=== PATIENT | female | born 1995 | race Caucasian/White ===

== ENCOUNTER → 2018-03-13 11:17 | Outpatient (CLI) | payer OTHER, SELFPAY | PROVIDERS: PCP Specialist; Visit Provider Specialist | DX: Z34.81 Encounter for supervision of other normal pregnancy, first trimester (principal) | CPT/HCPCS: 36415; 86850; 86900; 86901 ==

== ENCOUNTER → 2018-04-29 11:42 | Outpatient (CLI) | payer OTHER, SELFPAY ==
--- NOTE | 2018-04-29 11:44 | DI.US.S_ITS ---
PROCEDURE: US OB >= 14 WEEKS FETUS INDICATIONS: 20 week anatomic surgey OUTSIDE/PRIOR DATING DATA: Last menstrual period (LMP): 11/24/17. LMP-based estimated date of delivery (JEAN CARLOS): 09/01/18. First dating scan (date and location): 02/16/18. Estimated date of delivery (JEAN CARLOS) from first dating scan: 09/23/18. TECHNIQUE: Real-time scanning was performed of the fetus, with image documentation and biometric measurements. Endovaginal scanning: No COMPARISON: [facility], , OB >= 14 WEEKS FETUS, 04/17/2018, 12:13. FINDINGS: General: A single living intrauterine gestation is present. Presentation: Vertex. Placenta: Placental position is posterior, without previa. Amniotic fluid index: 12.5 cm, normal range is 5-24 cm. heart rate: 149 beats per minute. Maternal cervical canal: 3.3 cm long. Normal lower limit is 2.5 cm. biometrics: Biparietal diameter: 19 weeks 3 days Head circumference: 19 weeks 0 days Abdominal circumference: 19 weeks 3 days Femur length: 18 weeks 2 days Estimated gestational age from initial scan: 19 weeks 0 days Composite gestational age from present scan: 18 weeks 6 days Estimated weight and percentile: 264 g; 40 percentile Measurement variability for biometric dating: +/- 7 days from 14 weeks to 15 weeks 6 days gestation, +/- 10 days from 16 weeks to 21 weeks 6 days gestation, +/- 2 weeks from 22 weeks to 27 weeks 6 days gestation, +/- 3 weeks for 28 weeks gestation or later. weight reference: 4500 g or EFW >90/95% is considered macrosomia or large for gestational age. EFW <10% is small for gestational age. EFW 5% or less is considered intra-uterine growth restriction. Anatomic survey: Neuro: Ventricles are non-dilated at less than 10 mm. Cisterna magna is normal at 3-11 mm. Cerebellum is normal in size and morphology. Nuchal skin fold: Normal at less than 6 mm between 14-21 weeks gestational age. Face: Nose and lips, facial profile are normal. Spine: No evidence for spina bifida. Heart: 4-chambered heart is present, with normal ventricular outflow tracts. Diaphragm: Diaphragm is intact. Stomach: Left-sided stomach is present. Kidneys: No hydronephrosis. Normal is less than 5 mm in 2nd trimester, less than 7 mm in 3rd trimester. Cord: 3-vessel cord has orthotopic insertion. Marginal placental cord insertion roughly 1.9 cm from the placental margin. Bladder: Normal in size. Extremities: All 4 extremities identified. IMPRESSION: 1. Single living IUP redemonstrated and interval growth is normal. 2. Normal anatomic survey. 3. Marginal placental cord insertion. Dictated by: Benigno Baxter [facility] Interpreted: Jennifer Meier MD on 04/29/2018 at 13:14 Approved by: Jennifer Meier MD, PhD on 04/29/2018 at 14:30
== END ==
PROVIDERS: Family Provider Specialist; PCP Specialist; Visit Provider Specialist
DX: Z34.82 Encounter for supervision of other normal pregnancy, second trimester (principal); Z3A.18 18 weeks gestation of pregnancy
CPT/HCPCS: 76811

== ENCOUNTER → 2018-06-12 10:14 | Outpatient (CLI) | payer OTHER, SELFPAY ==
[2018-06-12 12:10] LABS: Hematocrit 36.7 % (36-46); Hemoglobin 12.3 g/dL (12.0-16.0)
[2018-06-12 13:23] LABS: GTT (PREG) 1 Hour PP 50gm Dose 90 mg/dL (76-139)
== END ==
LOC: LAB 10:15
PROVIDERS: PCP Specialist; Visit Provider Specialist
DX: Z34.82 Encounter for supervision of other normal pregnancy, second trimester (principal); Z3A.26 26 weeks gestation of pregnancy
CPT/HCPCS: 36415; 82950; 85014; 85018

== ENCOUNTER 2018-06-22 11:33 | Outpatient (CLI) | payer OTHER, SELFPAY ==
[2018-06-22 12:17] LABS: Appearance Urine UA CLEAR; Bilirubin Urine UA NEGATIVE (NEGATIVE); Color Urine UA YELLOW; Glucose Urine UA NEGATIVE (Negative); Ketones Urine UA NEGATIVE (NEGATIVE); Leukocyte Esterase Urine UA NEGATIVE (NEGATIVE); Nitrite Urine UA NEGATIVE (Negative); Occult Blood Urine UA NEGATIVE (Negative); Protein Urine UA NEGATIVE (Negative); Specific Gravity Urine UA 1.015 (1.000-1.035); Urobilinogen Urine UA 0.2 E.U./dL (0.2); pH Urine UA 7.5 (4.5-8.0)
--- NOTE | 2018-06-22 12:48 | P.TNLD_ITS ---
Visit Information Visit Information Date of evaluation: 06/22/18 Primary OB Provider: Nathalie Grier Reason for Evaluation: Yes pre-term labor Exam Narrative Exam Narrative: cervix long and closed. Objective Labs Labs: Laboratory Results - last 24 hr 06/22/18 11:44 Urine Color Yellow Urine Appearance Clear Urine pH 7.5 Ur Specific [place] 1.015 Urine Protein Negative Urine Glucose (UA) Negative Urine Ketones Negative Urine Occult Blood Negative Urine Nitrate Negative Urine Bilirubin Negative Urine Urobilinogen 0.2 Ur Leukocyte Esterase Negative Evaluation Evaluation Baseline heart rate: 150 Variability: Average (6-10) monitor accelerations: Present monitor decelerations: Absent Contraction Frequency (minutes): 0 Laboratory results: Laboratory Tests 06/22/18 11:44 Urine Color Yellow Urine Appearance Clear Urine pH 7.5 Ur Specific [place] 1.015 Urine Protein Negative Urine Glucose (UA) Negative Urine Ketones Negative Urine Occult Blood Negative Urine Nitrate Negative Urine Bilirubin Negative Urine Urobilinogen 0.2 Ur Leukocyte Esterase Negative Diagnosis, Plan/Disposition Final Diagnosis (1) Pelvic pain affecting in second trimester, antepartum: Current Visit: Yes Status: Acute Plan/Disposition Plan: No evidence of premature labor or UTI. Likely pelvic floor muscle discom fort from work out side yesterday. Rest call if symptoms increase
== END 2018-06-22 13:00 | disposition home or self-care (01) ==
LOC: LABOR 12:26 → OB 06-23 14:11
PROVIDERS: PCP Specialist; Visit Provider Specialist
DX: O26.892 Other specified pregnancy related conditions, second trimester (principal); R10.2 Pelvic and perineal pain; Z3A.26 26 weeks gestation of pregnancy
CPT/HCPCS: 59025; 81003; G0378; G0379

== ENCOUNTER 2018-07-14 12:31 | Outpatient (CLI) | payer OTHER, SELFPAY ==
--- NOTE | 2018-07-14 18:39 | PM.OBTRLD ---
Visit Information Visit Information Date of evaluation: 07/14/18 Primary OB Provider: Nathalie Grier On-call OB Provider: Jojo Cavanaugh Reason for Evaluation: Yes pre-term labor Review of Systems Review of Systems Patient is a 23-year-old 2 para 1 at 29-,6/7 weeks gestation who presented with complaint of feeling pressure for the last few days. No bleeding or leakage of fluid. Evaluation Evaluation Variability: Average (6-10) monitor accelerations: Present monitor decelerations: Variable Contraction Frequency (minutes): 0 Category of Tracing: I Cervical dilation (cm): 0 Diagnosis, Plan/Disposition Final Diagnosis (1) 29 weeks gestation of : Current Visit: No Status: Acute (2) Pelvic pressure in : Current Visit: No Status: Acute Plan/Disposition Plan: Assessment: 23-year-old 2 para 1 at 29-,6/7 weeks gestation with pelvic pressure, no signs of labor Plan: Discharged home Signs and symptoms of labor reviewed Follow-up with Dr. Grier as scheduled OB Disposition: home
== END 2018-07-14 14:30 | disposition home or self-care (01) ==
LOC: LABOR 13:19 → OB 07-16 10:53
PROVIDERS: PCP Specialist; Visit Provider Specialist
DX: O26.899 Other specified pregnancy related conditions, unspecified trimester (principal); R10.2 Pelvic and perineal pain; Z3A.29 29 weeks gestation of pregnancy
CPT/HCPCS: 59025; 59050; G0378; G0379

== ENCOUNTER → 2018-08-26 12:11 | Outpatient (CLI) | payer OTHER, SELFPAY ==
[2018-08-27 15:08] LABS: Strep Grp B PCR NEG for Grp B Strep
== END ==
LOC: LAB 12:12
PROVIDERS: PCP Specialist; Visit Provider Specialist
DX: Z34.90 Encounter for supervision of normal pregnancy, unspecified, unspecified trimester (principal)
CPT/HCPCS: 87653

== ENCOUNTER 2018-09-18 11:28 | Inpatient (IN) | payer OTHER, SELFPAY ==
[2018-09-18] MEDS: LACTATED RINGERS 1,000 ML 1000 ML IV (11:45)
[2018-09-18 12:15] LABS: Add Manual Diff / Slide Review NO; Basophils Absolute Auto 0 /uL (0-100); Basophils Percent Auto 0.3 % (0-2); Eosinophils Absolute Auto 300 /uL (0-450); Eosinophils Percent Auto 3.5 % (2-4); Hematocrit 36.6 % (36-46); Hemoglobin 12.5 g/dL (12.0-16.0); Lymphocytes Absolute Auto 1100 /uL (1100-4500); Lymphocytes Percent Auto 12.5 % (25-40); Mean Corpuscular Hemoglobin 26.9 PG (26-34); Mean Corpuscular Volume 79.1 fL (80-100); Monocytes Absolute Auto 600 /uL (0-900); Monocytes Percent Auto 6.4 % (3-14); Neutrophils Absolute Auto 6700 /uL (1500-7000); Neutrophils Percent Auto 77.3 % (50-75); Platelet Count 246 X10^3/uL (150-400); Red Blood Cell Count 4.63 X10^6/uL (4.0-5.2); Red Cell Distribution Width 13.9 % (11.6-14.8); White Blood Cell Count 8.7 X10^3/uL (4.5-11.0)
--- NOTE | 2018-09-18 12:46 | PM.OBHP.1 ---
OB HPI Date/Time Date of admission: 09/18/18 Date Patient Seen: 09/18/18 Time Patient Seen: 12:47 History of Present Condition Chief complaint: [id number] REPEAT : 2 Para: 1 Estimated Date of Delivery: 09/23/18 Estimated Gestational Age (weeks): 39 Narrative: Jody Angelo is a 23 year old female here for repeat section at 39 weeks Indications Operative indications ( section): previous uterine surgery History of Present care: good care, initiated at week # (8), number of visits (12) and pounds weight gain (17) Dating criteria: LMP confirmed by 1st trimester US Ultrasounds: normal mid trimester US Obstetrical complications: none Medical complications: none Preadmission Labs Blood type: B (+) positive -: Antibody screen: negative, GBS status: negative, HBsAG: negative, HIV: negative, HSV 1: positive, HSV 2: negative and RPR/VDLR: negative -: Chlamydia screen: not detected and Gonorrhea screen: not detected -: Rubella: immune and Varicella: immune HCAB: negative Fasting blood glucose: 90 Prior (ies) History: March 2017 for breech 8 lb 2 oz 40 week gestation Evaluation Evaluation Baseline heart rate: 125 Variability: Moderate (11-25) monitor accelerations: Present monitor decelerations: Absent Contraction Frequency (minutes): 0 Category of Tracing: I Laboratory results: Laboratory Tests 09/18/18 12:00 WBC 8.7 RBC 4.63 Hgb 12.5 Hct 36.6 MCV 79.1 L MCH 26.9 MCHC 34.0 RDW 13.9 Plt Count 246 Neut % (Auto) 77.3 H Lymph % (Auto) 12.5 L [place] % (Auto) 6.4 Eos % (Auto) 3.5 Baso % (Auto) 0.3 Neut # (Auto) 6700 Lymph # (Auto) 1100 [place] # (Auto) 600 Eos # (Auto) 300 Baso # (Auto) 0 PFSH Medical History (Updated 09/18/18 @ 12:53 by Nathalie Grier MD) Asthma (Chronic) Bipolar disorder in remission (Chronic) Migraine (Chronic) Meds Home Medications Medication Instructions Recorded Confirmed Type Breast Pump - Double Electric ea SEE INSTRUCTIONS #1 01/20/17 Rx oxycodone-acetaminophen 1 - 2 tab PO Q4HP PRN #40 tab 04/02/17 Rx [triple nipple oint] #0 05/02/17 History vitamin #141-hyos-[id number] 1 tab PO DAILY #30 tab 01/19/18 Rx acid 40 mg iron-1 mg chewable tablet nitrofurantoin 100 mg PO BID #10 cap 03/03/18 Rx monohydrate/macrocrystals 100 mg capsule albuterol sulfate HFA 90 2 puff INHALATION PRN PRN #1 07/22/18 Rx mcg/actuation aerosol inhaler inhalation budesonide-formoterol HFA 80 1 inh INHALATION BID #1 inh 07/22/18 Rx mcg-4.5 mcg/actuation aerosol inhaler Allergies Allergy/AdvReac Type Severity Reaction Status Date / Time NSAIDS (Non-Steroidal Allergy Unknown Unverified 07/02/17 12:42 Anti-Inflamma [NSAIDS (NON-STEROIDAL ANTI-INFLAMMA] Review of Systems Review of Systems Patient has no contractions or rupture membranes. No signs or symptoms of preeclampsia. Good movement. All systems reviewed & are unremarkable except as noted in HPI and below Exam Vital Signs (past 8 hours): Blood pressure 133/79, pulse of 101, temperature 97.7? Narrative Exam Narrative: HEENT exam within normal limits. Lungs are clear to auscultation percussion. Heart is regular rate and rhythm no S3-S4 murmurs. Abdomen is soft, nontender.. Extremities with trace edema and nontender. Objective Labs Result Diagrams: 09/18/18 12:00 Labs: Laboratory Results - last 24 hr 09/18/18 12:00 WBC 8.7 RBC 4.63 Hgb 12.5 Hct 36.6 MCV 79.1 L MCH 26.9 MCHC 34.0 RDW 13.9 Plt Count 246 Neut % (Auto) 77.3 H Lymph % (Auto) 12.5 L [place] % (Auto) 6.4 Eos % (Auto) 3.5 Baso % (Auto) 0.3 Neut # (Auto) 6700 Lymph # (Auto) 1100 [place] # (Auto) 600 Eos # (Auto) 300 Baso # (Auto) 0 Assessment and Plan Assessment and Plan Assessment and Plan narrative: Thirty-nine week gestation with prior section for breech for repeat section
--- NOTE | 2018-09-18 12:52 | P.HPOB_ITS ---
OB HPI Date/Time Date of admission: 09/18/18 Date Patient Seen: 09/18/18 Time Patient Seen: 12:47 History of Present Condition Chief complaint: [id number] REPEAT : 2 Para: 1 Estimated Date of Delivery: 09/23/18 Estimated Gestational Age (weeks): 39 Narrative: Jody Angelo is a 23 year old female here for repeat section at 39 weeks Indications Operative indications ( section): previous uterine surgery History of Present care: good care, initiated at week # (8), number of visits (12) and pounds weight gain (17) Dating criteria: LMP confirmed by 1st trimester US Ultrasounds: normal mid trimester US Obstetrical complications: none Medical complications: none Preadmission Labs Blood type: B (+) positive -: Antibody screen: negative, GBS status: negative, HBsAG: negative, HIV: negative, HSV 1: positive, HSV 2: negative and RPR/VDLR: negative -: Chlamydia screen: not detected and Gonorrhea screen: not detected -: Rubella: immune and Varicella: immune HCAB: negative Fasting blood glucose: 90 Prior (ies) History: March 2017 for breech 8 lb 2 oz 40 week gestation Evaluation Evaluation Baseline heart rate: 125 Variability: Moderate (11-25) monitor accelerations: Present monitor decelerations: Absent Contraction Frequency (minutes): 0 Category of Tracing: I Laboratory results: Laboratory Tests 09/18/18 12:00 WBC 8.7 RBC 4.63 Hgb 12.5 Hct 36.6 MCV 79.1 L MCH 26.9 MCHC 34.0 RDW 13.9 Plt Count 246 Neut % (Auto) 77.3 H Lymph % (Auto) 12.5 L [place] % (Auto) 6.4 Eos % (Auto) 3.5 Baso % (Auto) 0.3 Neut # (Auto) 6700 Lymph # (Auto) 1100 [place] # (Auto) 600 Eos # (Auto) 300 Baso # (Auto) 0 PFSH Medical History (Updated 09/18/18 @ 12:53 by Nathalie Grier MD) Asthma (Chronic) Bipolar disorder in remission (Chronic) Migraine (Chronic) Meds Home Medications Medication Instructions Recorded Confirmed Type Breast Pump - Double Electric ea SEE INSTRUCTIONS #1 01/20/17 Rx oxycodone-acetaminophen 1 - 2 tab PO Q4HP PRN #40 tab 04/02/17 Rx [triple nipple oint] #0 05/02/17 History vitamin #002-knme-[id number] 1 tab PO DAILY #30 tab 01/19/18 Rx acid 40 mg iron-1 mg chewable tablet nitrofurantoin 100 mg PO BID #10 cap 03/03/18 Rx monohydrate/macrocrystals 100 mg capsule albuterol sulfate HFA 90 2 puff INHALATION PRN PRN #1 07/22/18 Rx mcg/actuation aerosol inhaler inhalation budesonide-formoterol HFA 80 1 inh INHALATION BID #1 inh 07/22/18 Rx mcg-4.5 mcg/actuation aerosol inhaler Allergies Allergy/AdvReac Type Severity Reaction Status Date / Time NSAIDS (Non-Steroidal Allergy Unknown Unverified 07/02/17 12:42 Anti-Inflamma [NSAIDS (NON-STEROIDAL ANTI-INFLAMMA] Review of Systems Review of Systems Patient has no contractions or rupture membranes. No signs or symptoms of preeclampsia. Good movement. All systems reviewed & are unremarkable except as noted in HPI and below Exam Vital Signs (past 8 hours): Blood pressure 133/79, pulse of 101, temperature 97.7? Narrative Exam Narrative: HEENT exam within normal limits. Lungs are clear to auscultation percussion. Heart is regular rate and rhythm no S3-S4 murmurs. Abdomen is soft, nontender.. Extremities with trace edema and nontender. Objective Labs Result Diagrams: 09/18/18 12:00 Labs: Laboratory Results - last 24 hr 09/18/18 12:00 WBC 8.7 RBC 4.63 Hgb 12.5 Hct 36.6 MCV 79.1 L MCH 26.9 MCHC 34.0 RDW 13.9 Plt Count 246 Neut % (Auto) 77.3 H Lymph % (Auto) 12.5 L [place] % (Auto) 6.4 Eos % (Auto) 3.5 Baso % (Auto) 0.3 Neut # (Auto) 6700 Lymph # (Auto) 1100 [place] # (Auto) 600 Eos # (Auto) 300 Baso # (Auto) 0 Assessment and Plan Assessment and Plan Assessment and Plan narrative: Thirty-nine week gestation with prior section for breech for repeat section
--- NOTE | 2018-09-18 12:57 | PM.PREOP ---
Pre-operative Note Interval Note History & Physical reviewed/Exam performed by Physician: Yes Changes to H&P: No
--- NOTE | 2018-09-18 13:05 | SUR.OPER ---
Supine on Padded OR bed, head on pillow, safety belt at thigh, arms secured on padded arm boards at <90 degrees abduction. Bump under right buttock. Legs uncrossed with pillow under knees, gel pad to heels, tape over blanket to lower legs.
[2018-09-18] MEDS: CEFAZOLIN 2 GM/100 ML FROZ.PIGGY IV (13:45)
[2018-09-18 13:46] VITALS: BP 123/63
[2018-09-18] MEDS: ACETAMINOPHEN IV 1,000 MG/100 ML VIAL 400 MG IV (14:05)
--- NOTE | 2018-09-18 14:13 | SUR.OPER ---
viable female infant delivered at 1406.cord blood and placenta to ob with rn.
[2018-09-18] MEDS: LACTATED RINGERS 1,000 ML 100 ML IV ×3 (14:25→23:43)
[2018-09-18 14:41] VITALS: BP 111/58; PULSE 70; RESP 15; TEMP 36.3; O2SAT 96
[2018-09-18 14:46] VITALS: BP 100/60; PULSE 69; RESP 12; O2SAT 96
--- NOTE | 2018-09-18 14:46 | PM.OP.1 ---
Operative Date/Time/Diagnoses Date of procedure: 09/18/18 Time of procedure: 14:47 Pre-op diagnosis: Thirty-nine weeks with prior section Post-op diagnosis: same Procedure & Clinicians Procedure: Repeat low-transverse Same procedure as scheduled: Yes Indications: Thirty-nine weeks with prior section Surgeon: Nathalie Grier Signal Tower Operator: Oriana Clayton Click Yes if Unassisted: No Anesthesia Type: Spinal Operative Notes Findings: Normal tubes, ovaries, and uterus. Viable female weight 7 lb 8 oz with Apgars of 9 and 9 Closure Type: primary Specimen(s): none sent Estimated Blood Loss (mL): 150 Blood products transfused: none Procedure in detail: The patient was brought to the operating room where she underwent a spinal for anesthesia. She was placed in a supine position with a left lateral tilt. A Vann catheter was placed. Pulsatile stockings were placed and functional throughout the case. 2 g of Ancef were given IV prior to the incision. Warming was in place. The patient was prepped and draped in usual sterile fashion. A low transverse incision was made with a scalpel and the incision was carried down to the fascial layer which was incised transversely with scissors. The midline attachments are superiorly and inferiorly. Some bleeding was controlled Bovie. The rectus muscles were in the midline and the peritoneal incision was made with no damage to internal structures. The peritoneum was incised and superiorly and inferiorly. Bladder blade was placed and a bladder flap was developed and the bladder held away from the lower uterine segment. An incision was made in the uterus with the scalpel and the incision was extended with stretching. The head was elevated out of the abdomen and with fundal pressure and with assistance from a vacuum extractor the baby was delivered. The was bulb suctioned for clear fluid and handed off to the warmer. Cord blood was collected. The placenta delivered spontaneously with traction. The uterus was cleaned with clean laps. The uterine incision was closed in 2 layers of 0 chromic suture the first a running locking layer the second an imbricating layer. The bladder peritoneum was repaired with 2-0 Polysorb suture. The gutters were cleaned of any remaining fluids and ovaries and tubes were observed to be normal. Adequate hemostasis was noted. The perineum was closed with 2-0 Polysorb suture. The fascia layer was closed with 0 Polysorb suture with 2 stitches. The incision was irrigated and adequate hemostasis noted. The incision was closed with interrupted 3-0 Polysorb sutures and then a subcuticular stitch of 4-0 Polysorb suture. The uterus was massaged to remove any clots. The patient went to recovery room in good condition. Counts of instruments and sponges were correct. Complications: none Condition: stable Disposition: other ( Center) Plan for aftercare: Routine post section
[2018-09-18 14:51] VITALS: BP 105/68; PULSE 73; RESP 12; O2SAT 97
[2018-09-18] MEDS: METOCLOPRAMIDE 10 MG/2 ML INJ IV (14:53)
[2018-09-18 14:56] VITALS: BP 101/64; PULSE 71; RESP 14; O2SAT 97
[2018-09-18 15:05] VITALS: BP 102/67; PULSE 67; RESP 12; TEMP 36.1; O2SAT 96
--- NOTE | 2018-09-18 15:15 | SUR.PHASEI ---
Pt transferred to L&D room 2 via bed. Pt's last vital signs and assessment stable; see flowsheet documentation for details. Report given to PATRICIA Diaz prior to transfer. Emily at bedside upon arrival to L&D room 2; bedside assessment completed. PATRICIA Diaz to assume care of pt at this time.
[2018-09-18] MEDS: ONDANSETRON 4 MG/2 ML INJ IV ×2 (19:09→23:29)
[2018-09-18] MEDS: ACETAMINOPHEN 325 MG TABLET 650 MG PO (19:55)
[2018-09-18] MEDS: OXYCODONE IR 5 MG TABLET PO (20:03)
[2018-09-18] MEDS: BUTORPHANOL 1 MG/ML VIAL 0.5 MG IV (21:30)
[2018-09-19] MEDS: ACETAMINOPHEN 325 MG TABLET 650 MG PO ×4 (04:09→23:27)
[2018-09-19] MEDS: OXYCODONE IR 5 MG TABLET PO ×5 (04:10→23:27)
[2018-09-19 06:17] LABS: Add Manual Diff / Slide Review NO; Basophils Absolute Auto 0 /uL (0-100); Basophils Percent Auto 0.3 % (0-2); Eosinophils Absolute Auto 200 /uL (0-450); Eosinophils Percent Auto 2.2 % (2-4); Hematocrit 34.3 % (36-46); Hemoglobin 11.7 g/dL (12.0-16.0); Lymphocytes Absolute Auto 1000 /uL (1100-4500); Lymphocytes Percent Auto 9.8 % (25-40); Mean Corpuscular Volume 79.4 fL (80-100); Monocytes Absolute Auto 700 /uL (0-900); Monocytes Percent Auto 7.2 % (3-14); Neutrophils Absolute Auto 8400 /uL (1500-7000); Neutrophils Percent Auto 80.5 % (50-75); Platelet Count 209 X10^3/uL (150-400); Red Blood Cell Count 4.32 X10^6/uL (4.0-5.2); Red Cell Distribution Width 13.9 % (11.6-14.8); White Blood Cell Count 10.4 X10^3/uL (4.5-11.0)
--- NOTE | 2018-09-19 10:14 | PM.OBPN.1 ---
Subjective - OB Patient comments: no complaints and pain well controlled [place] baby status: doing well [place] feeding status: exclusively breast feeding Date Patient Seen: 09/19/18 Time Patient Seen: 10:15 Interval history: Patient had significant nausea and vomiting overnight but is feeling good now and tolerating a regular diet. Pain is under control. She is urinating and ambulatory. No flatus yet. Patient continues to have nasal congestion from allergies. No symptoms of preeclampsia. Exam Vital Signs (past 8 hours): Oxygen Delivery Method Room Air Narrative Exam Narrative: Blood pressure 113/70, pulse of 95, temperature 98.1? Abdomen is soft, appropriately tender. Uterus is firm, at U, nontender. Dressing is clean dry and intact. Extremities without edema and nontender. Objective Labs Result Diagrams: 09/19/18 06:05 Labs: Laboratory Results - last 24 hr 09/18/18 09/18/18 09/19/18 12:00 12:00 06:05 WBC 8.7 10.4 RBC 4.63 4.32 Hgb 12.5 11.7 L Hct 36.6 34.3 L MCV 79.1 L 79.4 L MCH 26.9 27.0 MCHC 34.0 34.0 RDW 13.9 13.9 Plt Count 246 209 Neut % (Auto) 77.3 H 80.5 H Lymph % (Auto) 12.5 L 9.8 L [place] % (Auto) 6.4 7.2 Eos % (Auto) 3.5 2.2 Baso % (Auto) 0.3 0.3 Neut # (Auto) 6700 8400 H Lymph # (Auto) 1100 1000 L [place] # (Auto) 600 700 Eos # (Auto) 300 200 Baso # (Auto) 0 0 Blood Type B Positive Antibody Screen Negative Assessment & Plan (1) Delivery by section using transverse incision of lower segment of uterus: Status: Acute Assessment and plan: Patient is doing well day to 1. Current Visit: No Plan day: 1 plan OB: routine postop care Time Spent With Patient Total time spent is greater than 50% in coordination of care (as documented) at patient's floor/unit and/or counseling patient: less than 15 minutes
[2018-09-19 10:17] VITALS: TEMP 36.7
[2018-09-19] MEDS: DOCUSATE 250 MG CAPSULE PO (11:30)
[2018-09-19] MEDS: LANOLIN OINT 7 GM 1 APPLIC TOP (11:30)
[2018-09-19 14:25] VITALS: TEMP 37
[2018-09-20] MEDS: OXYCODONE IR 5 MG TABLET PO ×2 (05:19→10:28)
[2018-09-20] MEDS: ACETAMINOPHEN 325 MG TABLET 650 MG PO ×2 (05:19→10:27)
--- NOTE | 2018-09-20 09:54 | P.DS_ITS ---
History of Present Illness Date Patient Seen: 09/20/18 Time Patient Seen: 09:47 Chief complaint: [id number] REPEAT Discharge Providers Date of admission: 09/18/18 11:28 Discharge Date: 09/20/18 Primary care physician: Nathalie Grier MD Consults: 09/18/18 15:43 Consult to Ground Defence Officer Routine Comment: Discharge provider: Nathalie Grier MD Summary Discharge Diagnosis: 9 wek gestation with prior section Hospital Course: Patient under went a repeat low transverse section .Patient denies any signs or symptoms of preeclampsia, she is uinating and ambulating well, her pain is under control. Exam Vital Signs (past 8 hours): BP 123/76, P 81, T98.3 Oxygen Delivery Method Room Air Narrative Exam Narrative: Abdomen is soft, NT. Uterus is firm at U-1 appropriately tender. No edema in extremities, non tender. Pt is RH +, rubella immune, and received Tdap in third trimester Objective Labs Result Diagrams: 09/19/18 06:05 Discharge Plan Discharge Plan Patient Disposition: Home Discharge Med Rec/Prescriptions Prescriptions: Continued Breast Pump - Double Electric SEE INSTRUCTIONS Qty: 1 RF: 0 [triple nipple oint] Qty: 0 RF: 0 vit no.109-iron-FA 40 mg iron- 1 mg tablet,chewable 1 tab PO DAILY Qty: 30 RF: 11 Ventolin HFA 90 mcg/actuation HFA aerosol inhaler 2 puff Inhalation PRN PRN (Reason: asthma) Qty: 1 RF: 2 Symbicort 80-4.5 mcg/actuation HFA aerosol inhaler 1 inh Inhalation BID Qty: 1 RF: 2 oxycodone-acetaminophen 5 MG/325 MG tablet 1 - 2 tab PO Q4HP PRN (Reason: pain (scale score 7-10)) Qty: 40 RF: 0 Discontinued nitrofurantoin monohyd/m-cryst [Macrobid] 100 mg capsule 100 mg PO BID Qty: 10 RF: 0 Follow up/Referrals: Nathalie Grier MD [Primary Care Provider] - 1 Week (remove aquzcel dressing 4 weeks post exam) Provider Discharge Instructions Diet: Regular Activity: nothing in vagina for 4 weeks do not lift over 20 pounds Skin/Wound/Dressing Care Dressing: leave dressing in place for 1 week Discharge Data Primary Care Provider: Nathalie Grier Attending Provider: Nathalie Grier Admit Date/Time: 09/18/18 11:28
[2018-09-20 10:16] VITALS: BP 110/66; PULSE 79; RESP 16; TEMP 37.2
[2018-09-20] MEDS: DOCUSATE 250 MG CAPSULE PO (10:28)
[2018-09-20 10:40] VITALS: BP 110/66; PULSE 79; RESP 16; TEMP 37.2
== END 2018-09-20 11:52 | disposition home or self-care (01) | DRG 788 ==
PROVIDERS: Admitting Provider Specialist; PCP Nurse Practitioner Family; Visit Provider Specialist
PROC: 10D00Z1 Extraction of Products of Conception, Low, Open Approach (ICD-10-PCS; CPT 59514; principal; 2018-09-18 13:30)
DX: O34.219 Maternal care for unspecified type scar from previous cesarean delivery (principal); Z3A.39 39 weeks gestation of pregnancy; Z37.0 Single live birth; R11.2 Nausea with vomiting, unspecified
CPT/HCPCS: 36415; 59025; 59050; 59510; 59514; 85025; 86850; 86900; 86901; J0131; J0595; J0690; J2274; J2405; J2590; J2765

== ENCOUNTER → 2020-03-09 08:31 | Outpatient (CLI) | payer OTHER, MEDICAID, SELFPAY ==
[2020-03-09 10:00] LABS: Add Manual Diff / Slide Review NO; Basophils Absolute Auto 0 /uL (0-100); Basophils Percent Auto 0.5 % (0-2); Eosinophils Absolute Auto 400 /uL (0-450); Eosinophils Percent Auto 6.6 % (2-4); Hematocrit 38.3 % (36-46); Lymphocytes Absolute Auto 1000 /uL (1100-4500); Lymphocytes Percent Auto 15.9 % (25-40); Mean Corpuscular HGB Conc 33.8 % (30-36); Mean Corpuscular Hemoglobin 27.9 PG (26-34); Mean Corpuscular Volume 82.5 fL (80-100); Monocytes Absolute Auto 400 /uL (0-900); Monocytes Percent Auto 6.9 % (3-14); Neutrophils Absolute Auto 4500 /uL (1500-7000); Neutrophils Percent Auto 70.1 % (50-75); Platelet Count 271 X10^3/uL (150-400); Red Blood Cell Count 4.65 X10^6/uL (4.0-5.2); Red Cell Distribution Width 13.3 % (11.6-14.8); White Blood Cell Count 6.5 X10^3/uL (4.5-11.0)
[2020-03-09 10:15] LABS: Appearance Urine UA CLEAR; Bilirubin Urine UA NEGATIVE (NEGATIVE); Color Urine UA YELLOW; Glucose Urine UA NEGATIVE (Negative); Ketones Urine UA NEGATIVE (NEGATIVE); Leukocyte Esterase Urine UA NEGATIVE (NEGATIVE); Nitrite Urine UA NEGATIVE (Negative); Occult Blood Urine UA NEGATIVE (Negative); Protein Urine UA NEGATIVE (Negative); Specific Gravity Urine UA 1.015 (1.000-1.035); Urobilinogen Urine UA 0.2 E.U./dL (0.2); pH Urine UA 7.5 (4.5-8.0)
[2020-03-09 15:46] LABS: Hepatitis B Surface Antigen NEGATIVE s/c (NEGATIVE); Rubella Antibody IgG 21.4 IU/mL (>15)
[2020-03-09 16:06] LABS: HIV 1 & 2 Ab/Ag 4th Gen Combo NEGATIVE (NEGATIVE); Hep C Virus Ab w/Reflex Quant NEGATIVE s/c (NEGATIVE)
[2020-03-10 01:07] LABS: Varicella IgG Antibody 318 index (Immune >165)
[2020-03-10 08:08] LABS: RPR Screen Non Reactive (Non Reactive)
== END ==
PROVIDERS: PCP Family Medicine; Referring Provider Family Medicine; Visit Provider Specialist
DX: Z34.81 Encounter for supervision of other normal pregnancy, first trimester (principal)
CPT/HCPCS: 36415; 80055; 81003; 86787; 86803; 86850; 86900; 86901; 87389

== ENCOUNTER → 2020-06-12 09:09 | Outpatient (CLI) | payer OTHER, MEDICAID, SELFPAY ==
--- NOTE | 2020-06-12 09:12 | DI.US.S_ITS ---
PROCEDURE: US OB >= 14 WEEKS FETUS INDICATIONS: ANATOMY OUTSIDE/PRIOR DATING DATA: Last menstrual period (LMP): 01/11/20. LMP-based estimated date of delivery (JEAN CARLOS): 10/17/20 . First dating scan (date and location): 03/09/20, by Dr. Grier . Estimated date of delivery (JEAN CARLOS) from first dating scan: 10/29/20, by Dr. Grier . TECHNIQUE: Real-time scanning was performed of the fetus, with image documentation and biometric measurements. Endovaginal scanning: Not needed COMPARISON: [facility], , OB >= 14 WEEKS FETUS, 05/24/2020, 9:26. [employer] [facility], , OB >= 14 WEEKS FETUS, 04/27/2020, 14:45. FINDINGS: General: A single living intrauterine gestation is present. Presentation: Transverse head right Placenta: Placental position is posterior , without previa. Amniotic fluid index: 14.7 cm, normal range is 5-24 cm. heart rate: 132 beats per minute. Maternal cervical canal: 4.2 cm long. Normal lower limit is 2.5 cm. biometrics: Biparietal diameter: 4.8 cm, 20 weeks 4 days Head circumference: 18.1 cm, 20 weeks 4 days Abdominal circumference: 15.7 cm, 20 weeks 6 days Femur length: 3.4 cm, 20 weeks 4 days Estimated gestational age from initial scan: 20 weeks 1 day Composite gestational age from present scan: 20 weeks 5 days Estimated weight and percentile: 370 g, 76th percentile Measurement variability for biometric dating: +/- 7 days from 14 weeks to 15 weeks 6 days gestation, +/- 10 days from 16 weeks to 21 weeks 6 days gestation, +/- 2 weeks from 22 weeks to 27 weeks 6 days gestation, +/- 3 weeks for 28 weeks gestation or later. weight reference: 4500 g or EFW >90/95% is considered macrosomia or large for gestational age. EFW <10% is small for gestational age. EFW 5% or less is considered intra-uterine growth restriction. Anatomic survey: Neuro: Ventricles are non-dilated at less than 10 mm. Cisterna magna is normal at 3-11 mm. Cerebellum is normal in size and morphology. Nuchal skin fold: Normal at less than 6 mm between 14-21 weeks gestational age. Face: Nose and lips, facial profile are normal. Spine: No evidence for spina bifida. Heart: 4-chambered heart is present, with normal ventricular outflow tracts. Diaphragm: Diaphragm is intact. Stomach: Left-sided stomach is present. Kidneys: No hydronephrosis. Normal is less than 5 mm in 2nd trimester, less than 7 mm in 3rd trimester. Cord: 3-vessel cord has orthotopic insertion. Bladder: Normal in size. Extremities: All 4 extremities identified. IMPRESSION: Appropriate interval growth, no anomaly seen. Dictated by: Chaka Teran M.D. on 06/12/2020 at 11:13 Approved by: Chaka Teran M.D. on 06/12/2020 at 11:23
== END ==
PROVIDERS: PCP Family Medicine; Referring Provider Specialist; Visit Provider Specialist
DX: Z34.82 Encounter for supervision of other normal pregnancy, second trimester (principal); Z3A.20 20 weeks gestation of pregnancy
CPT/HCPCS: 76811

== ENCOUNTER → 2020-07-18 08:48 | Outpatient (CLI) | payer OTHER, MEDICAID, SELFPAY ==
[2020-07-18 10:46] LABS: Hemoglobin 11.8 g/dL (12.0-16.0)
[2020-07-18 10:58] LABS: GTT (PREG) 1 Hour PP 50gm Dose 154 mg/dL (76-139)
== END ==
PROVIDERS: PCP Family Medicine; Referring Provider Specialist; Visit Provider Specialist
DX: Z34.82 Encounter for supervision of other normal pregnancy, second trimester (principal); Z3A.25 25 weeks gestation of pregnancy
CPT/HCPCS: 36415; 82950; 85014; 85018

== ENCOUNTER → 2020-07-20 07:58 | Outpatient (CLI) | payer OTHER, MEDICAID, SELFPAY ==
[2020-07-20 09:00] LABS: Glucose Fasting 91 mg/dL (70-100)
[2020-07-20 11:14] LABS: Glucose 1 Hour 163 mg/dL (70-170)
[2020-07-20 11:35] LABS: Glucose 2 Hour 152 mg/dL (70-140)
[2020-07-20 11:37] LABS: Glucose Tol Interpretation INTERPRETATION
[2020-07-20 12:17] LABS: Glucose 3 Hour 141 mg/dL (70-115)
== END ==
PROVIDERS: PCP Family Medicine; Referring Provider Specialist; Visit Provider Specialist
DX: O99.810 Abnormal glucose complicating pregnancy (principal)
CPT/HCPCS: 36415; 82951; 82952

== ENCOUNTER → 2020-10-04 10:31 | Outpatient (CLI) | payer OTHER, MEDICAID, SELFPAY ==
[2020-10-05 08:03] LABS: Strep Grp B PCR NEG for Grp B Strep
== END ==
PROVIDERS: PCP Family Medicine; Referring Provider Specialist; Visit Provider Specialist
DX: Z34.83 Encounter for supervision of other normal pregnancy, third trimester (principal); Z3A.36 36 weeks gestation of pregnancy
CPT/HCPCS: 87653

== ENCOUNTER → 2020-10-18 09:19 | Outpatient (CLI) | payer OTHER, MEDICAID, SELFPAY ==
[2020-10-18 11:32] LABS: COVID19 -Nasal RAPID Negative (Negative)
== END ==
PROVIDERS: PCP Family Medicine; Visit Provider Physician Assistant
DX: Z01.812 Encounter for preprocedural laboratory examination (principal); Z20.822 Contact with and (suspected) exposure to COVID-19
CPT/HCPCS: 87635

== ENCOUNTER 2020-10-20 05:30 | Inpatient (IN) | payer OTHER, MEDICAID, SELFPAY ==
--- NOTE | 2020-10-20 | PATH_ITS ---
[facility] Accession Number: [id number] . 01 Material submitted: . fallopian tube - BILATERAL FALLOPIAN TUBES . 01 Clinical history: . REPEAT W/SANTOSH SALPINGECTOMY . 02 Diagnosis: Bilateral Fallopian Tubes, Bilateral Salpingectomy: Fallopian tubes x2. Complete cross-sections identified. Negative for atypia or malignancy. V 10/24/2020 1330 Local . 02 Electronically signed: . Deann Castellano MD, Pathologist NPI- [id number] . 01 Gross description: . The specimen is received in formalin, labeled bilateral fallopian tubes, and consists of two fallopian tubes measuring 4.6 cm in length by 1.0 cm in diameter and 5.2 cm in length by 1.1 cm in diameter. The serosa is pink-purple and smooth. Sectioning reveals a almeida-pink mucosa and a stellate lumen measuring 0.6 cm in diameter. Barrel Drainer sections of each fallopian tube are submitted, to include the en face margin (blue), central cross-sections, and bisected fimbria in cassettes A1-A2. ([id number]) /[facility] 10/21/2020 1707 Local . 02 Pathologist provided ICD-10: Z3A.39, Z98.891, Z30.2 . 02 CPT . 534504 Performed at: 01 [facility] [address] [facility] [address] [place] [address], [place], [place] [id number] MD Ernesto Gamble MD Phone: [phone] Performed at: [address] [facility] [address] [place], [place] [id number] MD Karen Hogan MD Phone: [phone]
[2020-10-20] MEDS: LACTATED RINGERS 1,000 ML 100 ML IV ×2 (06:30→12:32)
[2020-10-20 06:54] LABS: Add Manual Diff / Slide Review NO; Basophils Absolute Auto 0 /uL (0-100); Basophils Percent Auto 0.3 % (0-2); Eosinophils Absolute Auto 300 /uL (0-450); Eosinophils Percent Auto 3.9 % (2-4); Hematocrit 34.2 % (36-46); Hemoglobin 11.3 g/dL (12.0-16.0); Lymphocytes Absolute Auto 1100 /uL (1100-4500); Mean Corpuscular Hemoglobin 25.3 PG (26-34); Mean Corpuscular Volume 76.4 fL (80-100); Monocytes Absolute Auto 600 /uL (0-900); Monocytes Percent Auto 6.7 % (3-14); Neutrophils Absolute Auto 6500 /uL (1500-7000); Neutrophils Percent Auto 76.1 % (50-75); Platelet Count 208 X10^3/uL (150-400); Red Blood Cell Count 4.47 X10^6/uL (4.0-5.2); Red Cell Distribution Width 14.2 % (11.6-14.8); White Blood Cell Count 8.5 X10^3/uL (4.5-11.0)
--- NOTE | 2020-10-20 07:24 | PM.PREOP ---
Pre-operative Note COVID-19 COVID-19 status: Negative Result date/Date tested (Pos, Neg/Pending): 10/19/20 Interval Note History & Physical reviewed/Exam performed by Physician: Yes Changes to H&P: No
--- NOTE | 2020-10-20 07:28 | P.HPOB_ITS ---
OB HPI Date/Time Date of admission: 10/20/20 Date Patient Seen: 10/20/20 Time Patient Seen: 07:29 History of Present Condition Chief complaint: REPEAT W/SANOTSH SALPINGECTOMY : 3 Para: 2 Estimated Date of Delivery: 10/26/20 Estimated Gestational Age (weeks): 39 Narrative: Jody Negrita Angelo is a 25 year old female admitted for repeat section with bilateral salpingectomies for tubal ligation Indications Operative indications ( section): previous uterine surgery History of Present care: good care, initiated at week # (7), number of visits (13) and pounds weight gain (11) Dating criteria: based on 1st trimester US only Ultrasounds: normal mid trimester US Obstetrical complications: none Medical complications: none Preadmission Labs Blood type: B (+) positive -: Antibody screen: negative, GBS status: negative, HBsAG: negative, HIV: negative and RPR/VDLR: negative -: Chlamydia screen: not detected and Gonorrhea screen: not detected -: Rubella: immune and Varicella: immune HCAB: negative 3 hr GTT: 1 hr (163), 2 hr (152) and 3 hr (141) Fasting blood glucose: 91 Prior (ies) History: 03/31/2017 39 week gestation 8 lb 2 oz female breech presentation 09/18/2018 39 week gestation 7 lb 8 oz female repeat Evaluation Evaluation Baseline heart rate: 120 Variability: Moderate (11-25) monitor accelerations: Present Monitor Decelerations: Absent Contraction Frequency (minutes): 0 Category of Tracing: Reactive Status: Category l Laboratory results: Laboratory Tests 10/20/20 06:15 WBC 8.5 RBC 4.47 Hgb 11.3 L Hct 34.2 L MCV 76.4 L MCH 25.3 L MCHC 33.0 RDW 14.2 Plt Count 208 Neut % (Auto) 76.1 H Lymph % (Auto) 13.0 L [place] % (Auto) 6.7 Eos % (Auto) 3.9 Baso % (Auto) 0.3 Neut # (Auto) 6500 Lymph # (Auto) 1100 [place] # (Auto) 600 Eos # (Auto) 300 Baso # (Auto) 0 PFSH Medical History (Updated 04/27/20 @ 14:53 by Nathalie Grier MD) Acid reflux (~2002) Anemia Anxiety and depression Asthma (~1997) Delivery by section using transverse incision of lower segment of uterus (~2017) Migraine (~2008) Nasal polyps (~2016) Pelvic pressure in depression (~2017) UTI (urinary tract infection) (~2019) Surgical History (Updated 03/03/20 @ 11:23 by Bri Maynard RN) History of nasal surgery (~2015) Family History (Updated 03/03/20 @ 11:38 by Bri Maynard RN) Mother Depression Hyperthyroidism Hypertension Asthma Father Hypertension Diabetes mellitus Mental health disorder Depression Anxiety Asthma Grandmother Asthma Grandfather Cancer Grandmother Bipolar 1 disorder COPD (chronic obstructive pulmonary disease) Hypertension Diabetes mellitus Grandfather Diabetes mellitus Family/Other Depression Anxiety Severe depression Brother Depression Anxiety Social History marital status: number of children: 2 household members: spouse and family (Lives w/ [id number].) lives independently: No caregiver/support person: No housing: house pets and animals: Yes (2 dogs (outside dogs, safe).) education level: college (Some college. ) occupational status: unemployed (Stay at home, 2 kids under 3.) current occupational exposures/hazards: No special jonny needs: No seatbelt use: always Smoking Status: Never smoker second hand exposure: No alcohol intake: never substance use type: does not use during the past year weight has: remained stable well-balanced diet: daily or most days caffeine: Yes (1 cup per day.) Type(s) of exercise: normal ROM and activity (2 kids under 3, busy at home. ) frequency: does not exercise Meds Home Medications and Allergies Home Medications Medication Instructions Recorded Confirmed Type multivitamin no.43-iron 40 1 tab PO DAILY #30 tab 01/19/18 09/20/20 Rx mg-folic acid 1 mg chewable tablet albuterol sulfate 90 mcg/actuation 2 puff INHALATION PRN PRN #1 07/22/18 09/20/20 Rx aerosol inhaler (Ventolin HFA) inhalation budesonide-formoterol HFA 80 1 inh INHALATION BID #1 inh 07/22/18 09/20/20 Rx mcg-4.5 mcg/actuation aerosol inhaler (Symbicort) montelukast 10 mg tablet 10 mg PO DAILY 03/03/20 09/20/20 History Allergies Allergy/AdvReac Type Severity Reaction Status Date / Time NSAIDS (Non-Steroidal Allergy Severe Exacerbates Verified 04/03/20 11:13 Anti-Inflamma her [NSAIDS (NON-STEROIDAL asthma. ANTI-INFLAMMA] adhesive tape AdvReac Mild redness, Verified 04/03/20 11:13 irritation Review of Systems Review of Systems Narrative: Patient denies headaches, scotomata, epigastric pain. Good movement. No leakage of fluid. No contractions. ROS: Yes All systems reviewed with the patient and are negative except as otherwise documented Exam Vital Signs (past 8 hours): Blood pressure 117/82, pulse of 90, temperature 96.9? Narrative Exam Narrative: HEENT exam within normal limits. Lungs are clear to auscultation and percussion. Heart is regular rate and rhythm no S3-S4 murmurs. Abdomen is gravid. Fetus is vertex. Extremities without edema and nontender. Objective Labs Result Diagrams: 10/20/20 06:15 Labs: Laboratory Results - last 24 hr 10/20/20 06:15 WBC 8.5 RBC 4.47 Hgb 11.3 L Hct 34.2 L MCV 76.4 L MCH 25.3 L MCHC 33.0 RDW 14.2 Plt Count 208 Neut % (Auto) 76.1 H Lymph % (Auto) 13.0 L [place] % (Auto) 6.7 Eos % (Auto) 3.9 Baso % (Auto) 0.3 Neut # (Auto) 6500 Lymph # (Auto) 1100 [place] # (Auto) 600 Eos # (Auto) 300 Baso # (Auto) 0 Assessment and Plan Assessment and Plan Assessment and Plan narrative: 39 week gestation for repeat section and bilateral salpingectomies for tubal ligation
[2020-10-20] MEDS: CEFAZOLIN 1 GM VIAL 2 GM IV (08:04)
[2020-10-20 09:00] VITALS: BP 127/66; PULSE 78; RESP 14; TEMP 36.4; O2SAT 98
[2020-10-20 09:05] VITALS: BP 126/66; PULSE 82; RESP 10; O2SAT 97
--- NOTE | 2020-10-20 09:08 | P.OP_ITS ---
Operative Date/Time/Diagnoses Date of procedure: 10/20/20 Time of procedure: 09:08 Pre-op diagnosis: 39 week gestation for repeat section and sterilization Post-op diagnosis: same Procedure & Clinicians Procedure: Repeat low-transverse section and bilateral salpingectomies Same procedure as scheduled: Yes Indications: 39 week gestation with 2 prior sections and wish for sterilization Surgeon: Nathalie Grier Park Interpretive Specialist: Reyes King Reason for Park Interpretive Specialist: Assist with retraction, fundal pressure, and cutting and suturing half the incision Anesthesia Type: Spinal Operative Notes Findings: Normal tubes, ovaries, uterus, viable male infant weighing 8 lb 7.5 oz with Apgars of 9 and 9 Closure Type: primary Specimen(s): cord blood Intraoperative meds administered: Pitocin Applied: Catheter (Vann) Estimated Blood Loss (mL): 300 Blood products transfused: none Complications: none Baby 1: Gender: Male Presentation: vertex Position: Left Occiput Anterior Placental Delivery Description: Expressed Cord Vessel Description: 3 Vessels score (1 min): 9 score (5 min): 9 weight: 8 lb 7 oz Narrative: The patient was brought to the operating room where she underwent a spinal for anesthesia. She was placed in a supine position with a left lateral tilt. A Vann catheter was placed. Pulsatile stockings were placed and functional throughout the case. 2 g of Ancef were given IV prior to the incision. Warming was in place. The patient was prepped and draped in usual sterile fashion. A low transverse incision was made with a scalpel and the incision was carried down to the fascial layer which was incised transversely with scissors. The acute care nursing assistant did his side of the incision. The midline attachments are superiorly and inferiorly. Some bleeding was controlled Bovie. The rectus muscles were in the midline and the peritoneal incision was made with no damage to internal structures. The peritoneum was incised and superiorly and inferiorly. The incision was stretched with the surgeon and acute care nursing assistant placing traction. Bladder blade was placed and a bladder flap was developed and the bladder held away from the lower uterine segment. An incision was made in the uterus with the scalpel and the incision was extended with stretching. The head was elevated out of the abdomen and with fundal pressure by the acute care nursing assistant the baby was delivered. The infant was bulb suctioned for clear fluid and handed off to the warmer. Cord blood was collected. The placenta delivered spontaneously with traction. The uterus was cleaned with clean laps. The uterine incision was closed in 2 layers of 0 chromic suture the first a running locking layer the second an imbricating layer. The acute care nursing assistant was helping to expose the incision. The left fallopian tube was grasped with the [place] and removed with the gyrus cautery to from the fimbriated end to the uterus. Same procedure was performed on the right side. The gutters were cleaned of any remaining fluids and ovaries were observed to be normal. Adequate hemostasis was noted. The perineum was closed with 2-0 Vicryl suture. The fascia layer was closed with 0 Vicryl suture with 2 stitches. The acute care nursing assistant repairing half the incision with helping to retract and expose the incision for the other half. The incision was irrigated and adequate hemostasis noted. The incision was closed with interrupted 3-0 Vicryl sutures and then a subcuticular stitch of 4-0 Vicryl suture. Steri-Strips were placed. The uterus was massaged to remove any clots. The patient went to recovery room in good condition. Counts of instruments and sponges were correct. Dr. King was present throughout the case to assist with retraction, fundal pressure to deliver the infant, and suturing half the fascia. Post-operative Condition: stable Disposition: other ( Center) Aftercare: routine postop
[2020-10-20 09:11] VITALS: BP 122/79; PULSE 75; RESP 19; O2SAT 98
[2020-10-20] MEDS: MORPHINE 2 MG/ML INJ IV (10:29)
[2020-10-20] MEDS: ONDANSETRON 4 MG/2 ML INJ IV (10:29)
[2020-10-20] MEDS: METOCLOPRAMIDE 10 MG/2 ML INJ IV ×2 (12:00→17:34)
[2020-10-20] MEDS: ACETAMINOPHEN 325 MG TABLET 650 MG PO ×2 (17:33→23:03)
[2020-10-20 17:46] VITALS: BP 117/82
[2020-10-21] MEDS: ACETAMINOPHEN 325 MG TABLET 650 MG PO ×2 (04:34→11:13)
[2020-10-21 07:16] LABS: Add Manual Diff / Slide Review NO; Basophils Absolute Auto 0 /uL (0-100); Basophils Percent Auto 0.2 % (0-2); Eosinophils Absolute Auto 200 /uL (0-450); Eosinophils Percent Auto 2.3 % (2-4); Hematocrit 29.6 % (36-46); Hemoglobin 9.9 g/dL (12.0-16.0); Lymphocytes Absolute Auto 900 /uL (1100-4500); Lymphocytes Percent Auto 9.5 % (25-40); Mean Corpuscular HGB Conc 33.6 % (30-36); Mean Corpuscular Volume 77.3 fL (80-100); Monocytes Absolute Auto 700 /uL (0-900); Monocytes Percent Auto 7.4 % (3-14); Neutrophils Absolute Auto 7600 /uL (1500-7000); Neutrophils Percent Auto 80.6 % (50-75); Platelet Count 184 X10^3/uL (150-400); Red Blood Cell Count 3.83 X10^6/uL (4.0-5.2); Red Cell Distribution Width 14.5 % (11.6-14.8); White Blood Cell Count 9.4 X10^3/uL (4.5-11.0)
--- NOTE | 2020-10-21 11:25 | PM.OBDS.1 ---
Discharge Providers Provider Date of admission: 10/20/20 05:30 Discharge Date: 10/21/20 Primary care physician: Helder Jeffery MD Consults: 10/20/20 10:06 Consult to Advertising Associate Routine Comment: Discharge provider: Reyes King MD Summary Hospital Course Date Patient Seen: 10/21/20 Time Patient Seen: 11:05 Diagnoses: S/P Repeat Section with bilateral salpingectomy for elective sterilization Hospital Course: Jody was admitted to [facility] on the morning of October 20, 2020 for scheduled repeat Caesarean section and elective sterilization by salpingectomy. She delivered a viable male at 8:19 a.m. with a weight of 3842 g (8 lb 7.5 oz). The surgery was uncomplicated in all respects and a detailed description of the procedure is well summarized on the dictated operative note by Dr. Nathalie Grier on that date. Following delivery the patient has done exceptionally well with prompt return of bowel and bladder function, she is ambulating independently, tolerating a regular diet, and her pain has been managed successfully with the use of Tylenol. First morning postop hemoglobin and hematocrit were consistent with observed operative losses and the results are shown below. Prior to discharge the patient was counseled regarding precautionary symptoms, limitations of activity, medications, and plans for follow-up. She will use OTC Tylenol at home for pain and OTC Colace as needed for constipation. No prescriptions were sent home with the patient. Follow-up be scheduled on 10/27/2020 for a 1 week postop incision check. Discharge Diagnosis (1) Sterilization: Status: Acute (2) Delivery by section using transverse incision of lower segment of uterus: Status: Acute Status at Discharge Cognitive/behavioral status at discharge: oriented and at baseline, oriented Functional status at discharge: independent ambulation Overall status at discharge: patient is progressing back to baseline Time Spent with Patient Time attestation: Total time spent providing and/or coordinating discharge services: Time spent: Less than 30 minutes Objective Labs Result Diagrams: 10/21/20 07:06 Labs: Laboratory Results - last 24 hr 10/21/20 07:06 WBC 9.4 RBC 3.83 L Hgb 9.9 L Hct 29.6 L MCV 77.3 L MCH 26.0 MCHC 33.6 RDW 14.5 Plt Count 184 Neut % (Auto) 80.6 H Lymph % (Auto) 9.5 L [place] % (Auto) 7.4 Eos % (Auto) 2.3 Baso % (Auto) 0.2 Neut # (Auto) 7600 H Lymph # (Auto) 900 L [place] # (Auto) 700 Eos # (Auto) 200 Baso # (Auto) 0 Exam Vital Signs (past 8 hours): Oxygen Delivery Method Room Air Const General: cooperative and comfortable Nutritional Appearance: average body habitus Orientation: alert and oriented x3 HENMT Head: normal to inspection Eyes General: appearance normal, both eyes and all related structures Neck Neck: normal visual inspection Resp Effort & Inspection: normal respiratory effort and able to speak in complete sentences Auscultation: clear to auscultation bilaterally Cardio Rate: regular rate Rhythm: regular rhythm Heart Sounds: S1 normal, S2 normal and murmur GI Inspection: normal to inspection and incision ( Dressing clean and dry) Palpation: soft, no hepatosplenomegaly and tender ( mild, diffuse) Auscultation: normal bowel sounds Extrem General: normal to inspection and No calf tenderness Psych Appearance: grossly normal Mental Status: mental status grossly normal Speech and Movement: speech and movement normal Mood: congruent mood Affect: normal affect Attitude: cooperative Thought Process: normal Thought Content: normal Judgment: judgment good Discharge Plan Discharge Plan Patient Disposition: Home Provider Discharge Comment: See instructions. Follow-up appointment scheduled for 10/27 incision check. Discharge orders & Medications Prescriptions: Continued multivitamin no.43-iron-FA 40 mg iron- 1 mg tablet,chewable 1 tab PO DAILY Qty: 30 RF: 11 Ventolin HFA 90 mcg/actuation HFA aerosol inhaler 2 puff Inhalation PRN PRN (Reason: asthma) Qty: 1 RF: 2 Symbicort 80-4.5 mcg/actuation HFA aerosol inhaler 1 inh Inhalation BID Qty: 1 RF: 2 montelukast 10 mg tablet 10 mg PO DAILY RF: 0 Follow up/Referrals: Reyes King MD [Physician] - (Your one week incision check/wellness check is scheduled for next Friday with Dr. King on October 27@ 10:45am.) Diet/Activity/Treatments Diet: Diet as Tolerated Visit Report/Discharge Packet Instructions: DI for Stand Alone Forms: Discharge: Care Discharge Data Primary Care Provider: Helder Jeffery
== END 2020-10-21 12:08 | disposition home or self-care (01) | DRG 540 ==
PROVIDERS: Admitting Provider Specialist; PCP Family Medicine; Referring Provider Specialist; Visit Provider Specialist
PROC: 10D00Z1 Extraction of Products of Conception, Low, Open Approach (ICD-10-PCS; CPT 59514; principal; 2020-10-20 07:45)
DX: O34.219 Maternal care for unspecified type scar from previous cesarean delivery (principal); Z3A.39 39 weeks gestation of pregnancy; Z37.0 Single live birth; Z30.2 Encounter for sterilization; O99.891 Other specified diseases and conditions complicating pregnancy; J45.909 Unspecified asthma, uncomplicated; O99.344 Other mental disorders complicating childbirth; F41.9 Anxiety disorder, unspecified
CPT/HCPCS: 36415; 58611; 59050; 59514; 85025; 86850; 86900; 86901; J0690; J2270; J2274; J2405; J2590; J2765